=== PATIENT | female | born 1980 | race African-American/Black ===

== ENCOUNTER 2016-10-13 14:48 | Emergency (ER) | payer BC ==
[2016-10-13 15:04] VITALS: BP 127/84; TEMP 97; O2SAT 99
--- NOTE | 2016-10-13 15:28 | RAD ---
Study: 3 Views of the Left Foot. Indication: horse stepped on foot 1 wk ago Comparison: None. Impression: Moderate plantar calcaneal heel spurring. No acute fracture or malalignment. Mild soft tissue swelling throughout the forefoot. Electronically signed by: Caleb Albarado MD 10/13/2016 3:26 PM CDT
--- NOTE | 2016-10-13 15:38 | ED.PDOC ---
History of Present Illness - General Chief Complaint: Lower Extremity Injury Stated Complaint: foot injury Time Seen by Provider: 10/13/16 14:58 Source: patient Exam Limitations: no limitations - History of Present Illness Initial Comments: the patient is a 36-year-old female presenting emergency room secondary persistent pain to the dorsum of her right foot after a horse stepped on it last week. She has been ambulatory on the foot since. No crepitus. No loss of sensation. No falls. The pain is low localized to the mid dorsum of the foot. There is some mild swelling noted. There is some tenderness to palpation. No crepitus and no gross deformity otherwise. Neurovascularly preserved. Occurred: last week Pain - Lower Extremity: moderate: Right Foot Method of Injury: direct blow, other Improving Factors: immobilization Worsening Factors: movement Allergies/Adverse Reactions: Allergies NO KNOWN ALLERGY Allergy (Verified 03/23/16 15:27) Home Medications: Ambulatory Orders Clomiphene Citrate 50 mg PO DAILY 03/23/16 Polyethylene Glycol 3350 [Miralax] 1 dose PO DAILY #1 bottle 03/23/16 Acetamin W/Cod #3 Tab [Tylenol #3 Tab] 1 ea PO Q4-6H PRN #20 tab 05/23/16 Cephalexin Monohydrate [Keflex Cap] 500 mg PO Q6HRS #40 cap 05/23/16 Ibuprofen [Motrin] 600 mg PO TID #30 tab 05/23/16 metroNIDAZOLE [Flagyl] 500 mg PO Q6HRS #40 tab 05/23/16 Review of Systems - Review of Systems Constitutional: States: no symptoms reported EENTM: States: no symptoms reported Respiratory: States: no symptoms reported Cardiology: States: no symptoms reported Gastrointestinal/Abdominal: States: no symptoms reported Genitourinary: States: no symptoms reported Musculoskeletal: States: see HPI Skin: States: no symptoms reported Neurological: States: no symptoms reported All other Systems: No Change from Baseline Past Medical History (General) - Patient Medical History Hx Seizures: No Hx Cardiac Disorders: No Hx Congestive Heart Failure: No Hx Hypertension: No Hx Thyroid Disease: No Hx Diabetes: No Hx Gastroesophageal Reflux: No Surgical History: other - Vaccination History Hx Tetanus, Diphtheria Vaccination: No Hx Influenza Vaccination: No Hx Pneumococcal Vaccination: No - Social History Hx Tobacco Use: No - Female History Patient is a Female of Child Bearing Age (10 -59 yrs old): Yes Patient : No Family Medical History - Family History Mother Family History: Unknown Living Status: Unknown Physical Exam - Physical Exam General Appearance: Alert, Comfortable, No apparent distress Eyes, Ears, Nose, Throat: normal ENT inspection Neck: full range of motion Cardiovascular/Respiratory: normal peripheral pulses, no respiratory distress Thigh/Hip: normal inspection, non-tender, no evidence of injury, normal ROM Leg: normal inspection, non-tender, no evidence of injury, normal ROM Knee: normal inspection, non-tender, no evidence of injury, normal ROM Ankle: normal inspection, non-tender, no evidence of injury, normal ROM Foot: normal ROM, other - see history of present illness Neuro/Tendon: normal sensation, normal motor functions, normal tendon functions Mental Status: alert, oriented x 3 Skin: normal color Comments: Vital Signs - 24 hr 10/13/16 14:59 Temperature 97.0 F L Pulse Rate [ 72 RIGHT BRACHIAL] Respiratory 16 Rate Blood Pressure 127/84 [RIGHT BRACHIAL ] O2 Sat by Pulse 99 Oximetry Progress - Progress Progress: 10/13/16 15:38 the patient is a 36-year-old female presenting to the emergency room after blunt trauma to the dorsum of her right foot one week ago. X-ray shows no evidence of fracture or dislocation. This appears to be soft tissue injury only. The patient can use an Ramses wrap to help discomfort as well as use Motrin or Aleve for discomfort. She should expect 2 weeks of discomfort. ER warnings were given for any worsening. Departure - Departure Clinical Impression: Contusion, foot Qualifiers: Encounter type: initial encounter Laterality: right Qualifier Code: (S90.31XA) Contusion of right foot, initial encounter Disposition: Discharge to Home or Self Care Condition: Fair Departure Forms: ED Discharge - Pt. Copy, Patient Portal Self Enrollment Instructions: Contusion Diet: regular diet Activity: increase activity as tolerated Home Medications: Ambulatory Orders Clomiphene Citrate 50 mg PO DAILY 03/23/16 Polyethylene Glycol 3350 [Miralax] 1 dose PO DAILY #1 bottle 03/23/16 Acetamin W/Cod #3 Tab [Tylenol #3 Tab] 1 ea PO Q4-6H PRN #20 tab 05/23/16 Cephalexin Monohydrate [Keflex Cap] 500 mg PO Q6HRS #40 cap 05/23/16 Ibuprofen [Motrin] 600 mg PO TID #30 tab 05/23/16 metroNIDAZOLE [Flagyl] 500 mg PO Q6HRS #40 tab 05/23/16 Additional Instructions: the patient is a 36-year-old female presenting to the emergency room after blunt trauma to the dorsum of her right foot one week ago. X-ray shows no evidence of fracture or dislocation. This appears to be soft tissue injury only. The patient can use an Ramses wrap to help discomfort as well as use Motrin or Aleve for discomfort. She should expect 2 weeks of discomfort. ER warnings were given for any worsening.
== END 2016-10-13 15:47 | disposition home or self-care (01) ==
LOC: ER 14:48
DX: S90.31XA Contusion of right foot, initial encounter (principal); Z79.899 Other long term (current) drug therapy; W55.19XA Other contact with horse, initial encounter